=== PATIENT | male | born 1980 | race African-American/Black ===

== ENCOUNTER 2021-11-16 10:57 | Outpatient (CLI) | payer OTHER, SELFPAY ==
[2021-11-16 12:37] LABS: Chloride* 103 mmol/L (96-114); Sodium* 140 mmol/L (135-149)
[2021-11-16 12:39] LABS: Cholesterol* 250 mg/dL (90-199)
[2021-11-16 12:40] LABS: Alanine Aminotransferase* 20 U/L (4-50); Alkaline Phosphatase* 80 U/L (40-150); Aspartate Amino Transferase* 34 U/L (12-35); Blood Urea Nitrogen* 12 mg/dL (5-24); Carbon Dioxide* 28 mmol/L (20-32); Estimated Glomerular Filt Rate 97 ml/min; Glucose* 90 mg/dL (60-115); Total Protein* 7.9 g/dL (6.0-8.3); Triglycerides* 106 mg/dL (40-149)
[2021-11-16 12:41] LABS: Calcium* 9.7 mg/dL (8.4-10.6); HDL Cholesterol* 48 mg/dL (>=40); LDL Cholesterol Calculated 181 mg/dL (<100)
[2021-11-18 14:52] LABS: Bilirubin Direct* 0.1 mg/dL (0.0-0.5)
[2021-11-18 14:53] LABS: Bilirubin Total* 2.4 mg/dL (0.1-1.5)
== END 2021-11-16 10:58 | disposition home or self-care (01) ==
PROVIDERS: PCP Family Medicine; Visit Provider Family Medicine
DX: E78.5 Hyperlipidemia, unspecified (principal); R79.89 Other specified abnormal findings of blood chemistry
CPT/HCPCS: 80053; 80061; 82248

== ENCOUNTER 2023-01-03 16:01 | Outpatient (CLI) | payer OTHER, SELFPAY | END 2023-01-03 16:02 | disposition home or self-care (01) | LOC: NFLDREF 01-04 03:02 | PROVIDERS: PCP Family Medicine; Referring Provider Family Medicine; Visit Provider Family Medicine | DX: E78.5 Hyperlipidemia, unspecified (principal); R79.89 Other specified abnormal findings of blood chemistry | CPT/HCPCS: 80061; 80076 ==

== ENCOUNTER 2023-06-11 14:07 | Outpatient (CLI) | payer OTHER, SELFPAY | END 2023-06-11 14:08 | disposition home or self-care (01) | PROVIDERS: PCP Family Medicine; Visit Provider Family Medicine | DX: E78.5 Hyperlipidemia, unspecified (principal); R79.89 Other specified abnormal findings of blood chemistry; R10.32 Left lower quadrant pain | CPT/HCPCS: 80048; 80061; 80076; 82150 ==

== ENCOUNTER 2024-04-14 18:03 | Outpatient (CLI) | payer OTHER, SELFPAY | END 2024-04-14 18:04 | disposition home or self-care (01) | PROVIDERS: PCP Family Medicine; Visit Provider Family Medicine | DX: E78.5 Hyperlipidemia, unspecified (principal); R79.89 Other specified abnormal findings of blood chemistry; Z12.5 Encounter for screening for malignant neoplasm of prostate | CPT/HCPCS: 80048; 80061; 80076; G0103 ==

== ENCOUNTER 2024-07-11 12:00 | Outpatient (CLI) | payer OTHER, SELFPAY | END 2024-07-11 12:01 | disposition home or self-care (01) | LOC: NFLDREF 07-12 10:04 | PROVIDERS: PCP Family Medicine; Referring Provider Family Medicine; Visit Provider Family Medicine | DX: E78.5 Hyperlipidemia, unspecified (principal); R79.89 Other specified abnormal findings of blood chemistry | CPT/HCPCS: 80061; 80076 ==